=== PATIENT | female | born 1970 | race Caucasian/White ===

== ENCOUNTER → 2017-03-09 | Outpatient (CLI) | payer BC ==
--- NOTE | 2017-03-09 10:51 | CT ---
EXAMINATION TYPE: CT image guided sinus DATE OF EXAM: 03/09/2017 COMPARISON: NONE HISTORY: 46-year-old female Chronic Sinusitis TECHNIQUE: Contiguous axial scanning of the paranasal sinuses without IV contrast. Imaging performed for surgical navigation. CT DLP: 484 mGycm Automated exposure control for dose reduction was used. FINDINGS: Polyp or mucosal retention cyst anterior right maxillary sinus. Mild mucosal thickening throughout th e maxillary sinuses, ethmoid air cells, and left sphenoid sinus. Right sphenoid sinus is hypoplastic. More moderate mucosal thickening in the left ethmoid air cells. Prior FESS. Mastoid air cells are we ll pneumatized. Orbits and globes intact. No air-fluid level seen. There is some reactive yessenia-osteoge nesis suggesting chronic paranasal sinus disease. IMPRESSION: LONG-STANDING CHRONIC PARANASAL SINUS DISEASE WITH MILD DIFFUSE MUCOSAL THICKENING, MORE MODERATE IN THE LEFT ETHMOID AIR CELLS. PRIOR FESS. EXAM PERFORMED FOR CT GUIDED SURGICAL NAVIGATION.
== END | disposition home or self-care (01) ==
LOC: RADCTMAIN 07:53
PROVIDERS: ATTEND Otolaryngology
DX: J32.9 Chronic sinusitis, unspecified (principal)
CPT/HCPCS: 70486

== ENCOUNTER → 2017-05-17 | Outpatient (CLI) | payer BC ==
--- NOTE | 2017-05-17 08:28 | MM ---
Reason for exam: additional evaluation requested from abnormal screening. Last mammogram was performed 1 month ago. History: Family history of breast cancer in maternal aunt at age 50 and breast cancer in maternal cousin at age 60. Benign MG stereo VAD BX RT of the right breast, February 14, 2015. Took hormonal contraceptives for 9 years beginning at age 19. Physical Findings: Nurse did not find any significant physical abnormalities on exam. MG Work Up Mamm w CAD BILAT Bilateral spot compression CC, spot compression MLO, and LM view(s) were taken. Prior study comparison: April 28, 2017, bilateral MG screening mammo w CAD. March 03, 2016, bilateral MG screening mammo w CAD. There is a persistent 6mm mass in the lower inner quadrant on the right breast at middle posterior depth. The remaining masses improve on additional views and appear as fibrogladular tissue. These results were verbally communicated with the patient and result sheet given to the patient on 05/17/17. ASSESSMENT: Incomplete: need additional imaging evaluation, BI-RAD 0 RECOMMENDATION: Ultrasound of the right breast. (lower inner quadrant)
--- NOTE | 2017-05-17 08:51 | USB ---
Reason for exam: additional evaluation requested from abnormal screening. History: Family history of breast cancer in maternal aunt at age 50 and breast cancer in maternal cousin at age 60. Benign MG stereo VAD BX RT of the right breast, February 14, 2015. Took hormonal contraceptives for 9 years beginning at age 19. US Breast Workup Limited RT Right breast ultrasound demonstrates a 5 x 5 x 6mm cystic lesion at 3 o'clock 2.4cm from nipple and a 6 x 5 x 5mm cystic lesion at 6 o'clock 10.7cm from nipple. Benign. Correlates with mammographic finding. No suspicious sonographic mass. These results were verbally communicated with the patient and result sheet given to the patient on 05/17/17. ASSESSMENT: Benign, BI-RAD 2 RECOMMENDATION: Return to routine screening mammogram schedule for both breasts.
== END | disposition home or self-care (01) ==
LOC: RADMAMWWP 06:51
PROVIDERS: ATTEND Obstetrics & Gynecology
DX: R92.8 Other abnormal and inconclusive findings on diagnostic imaging of breast (principal)
CPT/HCPCS: 77066

== ENCOUNTER → 2017-06-01 | Outpatient (CLI) | payer BC ==
--- NOTE | 2017-06-02 07:28 | US ---
EXAMINATION TYPE: US carotid duplex BILAT DATE OF EXAM: 06/01/2017 COMPARISON: NONE CLINICAL HISTORY: M54.2 Cervicalgia. Patient states left neck throbbing, no HTN, no hx of surgeries EXAM MEASUREMENTS: RIGHT: Peak Systolic Velocity (PSV) cm/sec ----- Right CCA: 84.2 ----- Right ICA: 91.9 ----- Right ECA: 83.1 ICA/CCA ratio: 1.1 RIGHT: End Diastole cm/sec ----- Right CCA: 32.5 ----- Right ICA: 45.7 ----- Right ECA: 18.2 LEFT: Peak Systolic Velocity (PSV) cm/sec ----- Left CCA: 85.3 ----- Left ICA: 66.0 ----- Left ECA: 55.9 ICA/CCA ratio: 0.8 LEFT: End Diastole cm/sec ----- Left CCA: 27.0 ----- Left ICA: 37.2 ----- Left ECA: 13.2 VERTEBRALS (direction of flow): Right Vertebral: Antegrade Left Vertebral: Antegrade Rhythm: Normal No elevated velocities, plaque, significant stenosis or wall thickening seen. IMPRESSION: No significant hemodynamic stenosis. Criteria for Assigning % of Stenosis / Diameter reduction (Estimation based on the indirect measurements of the internal carotid artery velocities (ICA PSV). 1. Normal (no stenosis)=ICA PSV < 125 cm/s: ratio < 2.0: ICA EDV<40 cm/s. 2. Less than 50% stenosis=ICA PSV < 125 cm/s: ratio < 2.0: ICA EDV<40 cm/s. 3. 50 to 69% stenosis=ICA PSV of 125 to 230 cm/s: ration 2.0 ? 4.0: ICA EDV 40-100 cm/s. 4. Greater than 70% stenosis to near occlusion= ICA PSV > 230 cm/s: ratio > 4.0: ICA EDV > 100 cm/s. 5. Near occlusion= ICA PSV velocities may be low or undetectable: variable ratio and ICA EDV. 6. Total occlusion=unable to detect flow.
== END | disposition home or self-care (01) ==
LOC: RADUSWWP 15:58
PROVIDERS: ATTEND Family Medicine
DX: M54.2 Cervicalgia (principal)
CPT/HCPCS: 93880

== ENCOUNTER 2017-06-21 06:47 | Day surgery (SDC) | payer BC ==
[2017-06-17 12:09] VITALS: BMI 33.4
[~2017-06-21 06:47] MED LIST: LACTATED RINGERS 1,000 ML IV SCH; LIDOCAINE 1% 20 ML VIAL (10MG/ML) FOR IV START INTRADERMA PRN
[2017-06-21 07:04] VITALS: TEMP 98.3
[2017-06-21] MEDS ORDERED: PROPOFOL 10 MG/ML 20 ML VIAL IV ONE (07:35)
--- NOTE | 2017-06-21 07:53 | P.GSHP ---
History of Present Illness H&P Date: 06/21/17 Chief Complaint: Colon cancer screening Patient here today for colonoscopy. Last colonoscopy 5 years ago. She had colon polyps at that time. No bowel related complaints. Family history of colon cancer in her grandfather and aunt. Past Medical History Past Medical History: Asthma, Sleep Apnea/CPAP/BIPAP, Thyroid Disorder Additional Past Medical History / Comment(s): uses cpap machine, hx. colon polyps History of Any Multi-Drug Resistant Organisms: None Reported Past Surgical History: Bariatric Surgery, Hysterectomy Additional Past Surgical History / Comment(s): Right carpal tunnel, Sinus surgery x4, biopsy lt breast, gastric sleeve 02/18/2015 Past Anesthesia/Blood Transfusion Reactions: No Reported Reaction Smoking Status: Never smoker - Past Family History Father Family Medical History: Cancer Additional Family Medical History / Comment(s): kidney cancer Mother Family Medical History: Hypertension Medications and Allergies Home Medications Medication Instructions Recorded Confirmed Type Fexofenadine HCl [[place] Allergy] 180 mg PO HS 12/06/13 06/17/17 History Montelukast [Singulair] 10 mg PO HS 12/06/13 06/17/17 History Levothyroxine Sodium [Synthroid] 175 mcg PO DAILY 02/18/15 06/17/17 History Allergies Allergy/AdvReac Type Severity Reaction Status Date / Time No Known Allergies Allergy Verified 06/17/17 11:52 Surgical - Exam Vital Signs Temp Pulse Resp BP Pulse Ox 98.3 F 97 14 133/79 98 06/21/17 06:59 06/21/17 06:59 06/21/17 06:59 06/21/17 06:59 06/21/17 06:59 Physical exam: General: Well-developed, well-nourished HEENT: Normocephalic, sclerae nonicteric Abdomen: Nontender, nondistended Extremities: No edema Neuro: Alert and oriented Assessment and Plan (1) Colon cancer screening Narrative/Plan: Will proceed with colonoscopy at this time. Current Visit: Yes Status: Acute Code(s): Z12.11 - ENCOUNTER FOR SCREENING FOR MALIGNANT NEOPLASM OF COLON SNOMED Code(s): 616672102
--- NOTE | 2017-06-21 08:05 | P.PCN ---
Date of Procedure: 06/21/17 Procedure(s) Performed: PREOPERATIVE DIAGNOSIS: Colon cancer screening POSTOPERATIVE DIAGNOSIS: Ascending colon polyp, diverticulosis PROCEDURE: Colonoscopy with snare polypectomy ANESTHESIA: MAC SURGEON: Norris Velasco M.D. SPECIMENS: Ascending colon polyp ENDOSCOPIC PROCEDURE: The patient was placed on the endoscopy table in the left decubitus position. The Olympus colonoscope was inserted into the anus and passed under direct visualization to the base of the cecum. The appendiceal orifice was visualized. From that point the scope was slowly withdrawn inspecting all surfaces carefully. There were no neoplastic inflammatory or polypoid lesions throughout the cecum. In the ascending colon a small polyp was removed using the snare with cautery technique. The remainder of the ascending, transverse, descending, sigmoid and rectum appeared normal. There was moderate diverticulosis noted throughout the left colon. Digital rectal examination was normal. The patient was taken to the recovery room in stable condition per anesthesia guidelines. RECOMMENDATIONS: Await biopsy results. Anticipate follow-up colonoscopy 5 years.
[2017-06-21 08:27] VITALS: BP 103/71; PULSE 81; RESP 16
== END 2017-06-21 08:53 | disposition home or self-care (01) ==
LOC: ORWHC2ENDO 06:47
PROVIDERS: ATTEND Surgery
DX: Z12.11 Encounter for screening for malignant neoplasm of colon (principal); D12.2 Benign neoplasm of ascending colon; K57.30 Diverticulosis of large intestine without perforation or abscess without bleeding; Z86.010 Personal history of colon polyps; J45.909 Unspecified asthma, uncomplicated; G47.33 Obstructive sleep apnea (adult) (pediatric); Z99.89 Dependence on other enabling machines and devices; E07.9 Disorder of thyroid, unspecified; Z98.84 Bariatric surgery status; Z80.51 Family history of malignant neoplasm of kidney; Z79.890 Hormone replacement therapy; Z79.899 Other long term (current) drug therapy
CPT/HCPCS: 88305; 45385; J2704

== ENCOUNTER → 2018-06-01 | Outpatient (CLI) | payer BC ==
--- NOTE | 2018-06-04 09:10 | MM ---
Reason for exam: screening (asymptomatic). Last mammogram was performed 1 year ago. History: Family history of breast cancer in maternal aunt at age 50 and breast cancer in maternal cousin at age 60. Benign MG stereo VAD BX RT of the right breast, February 14, 2015. Took hormonal contraceptives for 9 years beginning at age 19. MG Screening Mammo w CAD Bilateral CC and MLO view(s) were taken. Prior study comparison: May 17, 2017, bilateral MG work up mamm w CAD BILAT. April 28, 2017, bilateral MG screening mammo w CAD. The breast tissue is heterogeneously dense. This may lower the sensitivity of mammography. There is a benign-appearing 8mm equal oval partially circumscribed mass in the right breast upper middle position in the MLO. Chronic nodularity in the right breast. Finding is changed when compared to prior studies. ASSESSMENT: Incomplete: need additional imaging evaluation, BI-RAD 0 RECOMMENDATION: Ultrasound of the right breast.
== END | disposition home or self-care (01) ==
LOC: RADMAMWWP 06:51
PROVIDERS: ATTEND Obstetrics & Gynecology
DX: Z12.31 Encounter for screening mammogram for malignant neoplasm of breast (principal); Z80.3 Family history of malignant neoplasm of breast
CPT/HCPCS: 77067

== ENCOUNTER → 2018-06-17 | Outpatient (CLI) | payer BC ==
--- NOTE | 2018-06-17 08:27 | USB ---
Reason for exam: additional evaluation requested from abnormal screening. History: Family history of breast cancer in maternal aunt at age 50 and breast cancer in maternal cousin at age 60. Benign MG stereo VAD BX RT of the right breast, February 14, 2015. Took hormonal contraceptives for 9 years beginning at age 19. Physical Findings: Nurse did not find any significant physical abnormalities on exam. US Breast Workup Limited RT Right limited breast ultrasound including focal area of concern, retroareolar and axilla demonstrates a 1.3 x 0.6 x 0.8cm oval, cystic lesion at 10 o'clock. These results were verbally communicated with the patient and result sheet given to the patient on 06/17/18. ASSESSMENT: Benign, BI-RAD 2 RECOMMENDATION: Return to routine screening mammogram schedule for both breasts.
== END | disposition home or self-care (01) ==
LOC: RADUSWWP 06:51
PROVIDERS: ATTEND Obstetrics & Gynecology
DX: R92.8 Other abnormal and inconclusive findings on diagnostic imaging of breast (principal)

== ENCOUNTER → 2021-01-14 | Outpatient (CLI) | payer BC ==
--- NOTE | 2021-01-15 08:57 | MM ---
Reason for exam: screening (asymptomatic). Last mammogram was performed 1 year ago. History: Family history of breast cancer in maternal aunt at age 50 and breast cancer in maternal cousin at age 60. Benign MG stereo VAD BX RT of the right breast, February 14, 2015. Took hormonal contraceptives for 9 years beginning at age 19. Physical Findings: A clinical breast exam by your physician is recommended on an annual basis and results should be correlated with mammographic findings. MG Screening Mammo w CAD Bilateral CC and MLO view(s) were taken. Prior study comparison: January 04, 2020, bilateral MG screening mammo w CAD. June 01, 2018, bilateral MG screening mammo w CAD. The breast tissue is heterogeneously dense. This may lower the sensitivity of mammography. Focal asymmetry left inner lower quadrant zone C. This finding is changed when compared with previous exams. ASSESSMENT: Incomplete: need additional imaging evaluation, BI-RAD 0 RECOMMENDATION: Special view mammogram of the left breast. If lesion persists on supplemental views, image directed ultrasound is recommended. [facility] will attempt to contact patient to return for supplemental views and ultrasound if indicated.
== END | disposition home or self-care (01) ==
LOC: RADMAMWWP 09:04
PROVIDERS: ATTEND Obstetrics & Gynecology
DX: Z12.31 Encounter for screening mammogram for malignant neoplasm of breast (principal); Z80.3 Family history of malignant neoplasm of breast; Z79.3 Long term (current) use of hormonal contraceptives
CPT/HCPCS: 77067

== ENCOUNTER → 2021-01-16 | Outpatient (CLI) | payer BC ==
--- NOTE | 2021-01-16 09:06 | MM ---
Reason for exam: additional evaluation requested from abnormal screening. Last mammogram was performed less than 1 month ago. History: Family history of breast cancer in maternal aunt at age 50 and breast cancer in maternal cousin at age 60. Benign MG stereo VAD BX RT of the right breast, February 14, 2015. Took hormonal contraceptives for 9 years beginning at age 19. Physical Findings: Nurse did not find any significant physical abnormalities on exam. MG Work Up Mamm w CAD LT Spot compression CC, spot compression MLO, and LM view(s) were taken of the left breast. Prior study comparison: January 14, 2021, bilateral MG screening mammo w CAD. January 04, 2020, bilateral MG screening mammo w CAD. June 17, 2018, right breast US breast workup limited RT. There are scattered fibroglandular densities. The 7 o'clock asymmetric density becomes less defined on spot compression. Not clearly seen on true lateral. 6 month follow up recommended. These results were verbally communicated with the patient and result sheet given to the patient on 01/16/21. ASSESSMENT: Probably benign, BI-RAD 3 RECOMMENDATION: Follow-up diagnostic mammogram of the left breast in 6 months.
== END | disposition home or self-care (01) ==
LOC: RADMAMWWP 06:57
PROVIDERS: ATTEND Obstetrics & Gynecology
DX: N64.89 Other specified disorders of breast (principal); Z80.3 Family history of malignant neoplasm of breast; Z79.3 Long term (current) use of hormonal contraceptives
CPT/HCPCS: 77065

== ENCOUNTER → 2021-07-16 | Outpatient (CLI) | payer BC ==
--- NOTE | 2021-07-16 12:12 | MM ---
Reason for exam: follow-up at short interval from prior study. Last mammogram was performed 6 months ago. History: Family history of breast cancer in maternal aunt at age 50 and breast cancer in maternal cousin at age 60. Benign MG stereo VAD BX RT of the right breast, February 14, 2015. Took hormonal contraceptives for 9 years beginning at age 19. Physical Findings: A clinical breast exam by your physician is recommended on an annual basis and results should be correlated with mammographic findings. MG 3D Diag Mammo W/Cad LT CC and MLO view(s) were taken of the left breast. Prior study comparison: January 16, 2021, left breast MG work up mamm w CAD LT. January 14, 2021, bilateral MG screening mammo w CAD. The breast tissue is heterogeneously dense. This may lower the sensitivity of mammography. Nodule upper outer left breast 13.4cm from nipple measures 10mm. These results were verbally communicated with the patient and result sheet given to the patient on 07/16/21. ASSESSMENT: Incomplete: need additional imaging evaluation, BI-RAD 0 RECOMMENDATION: Ultrasound of the left breast.
--- NOTE | 2021-07-16 12:14 | USB ---
Reason for exam: additional evaluation requested from abnormal screening. History: Family history of breast cancer in maternal aunt at age 50 and breast cancer in maternal cousin at age 60. Benign MG stereo VAD BX RT of the right breast, February 14, 2015. Took hormonal contraceptives for 9 years beginning at age 19. US Breast Limited LT Left limited breast ultrasound including focal area of concern, retroareolar and axilla demonstrates a 1.0 x 0.6 x 0.8cm cystic lesion at 3 o'clock. These results were verbally communicated with the patient and result sheet given to the patient on 07/16/21. ASSESSMENT: Benign, BI-RAD 2 RECOMMENDATION: Return to routine screening mammogram schedule for both breasts. Back on schedule.
== END | disposition home or self-care (01) ==
LOC: RADMAMWWP 10:05
PROVIDERS: ATTEND Obstetrics & Gynecology
DX: R92.8 Other abnormal and inconclusive findings on diagnostic imaging of breast (principal); Z80.3 Family history of malignant neoplasm of breast
CPT/HCPCS: 77061; 77065

== ENCOUNTER → 2022-04-22 | Outpatient (CLI) | payer BC ==
--- NOTE | 2022-04-23 08:47 | MM ---
Reason for Exam: Screening (asymptomatic). Last mammogram was performed 1 year(s) and 3 month(s) ago. Patient History: Menarche at age 11. First Full-Term at age 19. Hysterectomy at age 42. Hormonal Contraceptives for 9 years from age 19 until age 28. 02/14/2015, Benign Core Biopsy on the right side. Maternal cousin had breast cancer, age 60. Maternal aunt had breast cancer, age 50. Risk Values: [employer] 5 year model risk: 1.2%. NCI Lifetime model risk: 9.0%. Prior Study Comparison: 01/14/2021 Bilateral Screening Mammogram, [facility]. 01/16/2021 Left Diagnostic Mammogram, [facility]. 07/16/2021 Left Diagnostic Mammogram, [facility]. Tissue Density: There are scattered fibroglandular densities. Findings: Analyzed By CAD. There is no suspicious group of microcalcifications or new suspicious mass in either breast. Overall Assessment: Negative, BI-RAD 1 Management: Screening Mammogram of both breasts in 1 year. A clinical breast exam by your physician is recommended on an annual basis and results should be correlated with mammographic findings. [facility] will attempt to contact patient to return for supplemental views and ultrasound if indicated. Electronically signed and approved by: Kevin Momin DO
== END | disposition home or self-care (01) ==
LOC: RADMAMWWP 07:14
PROVIDERS: ATTEND Obstetrics & Gynecology
DX: Z12.31 Encounter for screening mammogram for malignant neoplasm of breast (principal); Z80.3 Family history of malignant neoplasm of breast
CPT/HCPCS: 77067